=== PATIENT | female | born 1950 | race Caucasian/White ===

== ENCOUNTER 2017-11-12 14:21 | Inpatient (IN) | payer OTHER ==
[~2017-11-12] VITALS: Ht 167.6 cm; Wt 80.5 kg
[~2017-11-12 14:21] MED LIST: ARIPIPRAZOLE5 MG PO; BENADRYL25 MG PO; CARDIZEM120 MG PO; CYMBALTA60 MG PO; DILTIAZEM 24HR120 MG PO; DOK PLUS TABLE1 EACH PO; MUPIROCIN22 GM TP; NUCYNTA ER150 MG PO; OMEPRAZOLE40 M1 PO; OXYCODONE HCL5 MG PO; TYLENOL REGULA325 MG PO; XARELTO10 MG PO
[2017-11-12 15:05] LABS: BASOPHIL (%) 0.2 % (0-1); EOSINOPHIL (%) 0.1 % (0-5); HEMATOCRIT 36.9 % (36.0-46.0); HEMOGLOBIN 12.7 G/DL (11.9-15.5); IMMATURE GRANULOCYTE (%) 0.6 % (0.0-0.7); LYMPHOCYTE (%) 7.1 % (15-42); LYMPHOCYTE COUNT 0.9 K/uL (1.0-2.8); MCH 33.2 PG (29.0-34.0); MCHC 34.4 G/DL (30.0-36.0); MCV 96.3 FL (83-99); MONOCYTE (%) 11.7 % (3-12); MONOCYTE COUNT 1.5 K/uL (0-0.8); NEUTROPHIL (%) 80.3 % (45-76); NEUTROPHIL COUNT 10.1 K/uL (1.8-6.4); PLATELET COUNT 83 K/uL (156-360); RBC DIS.WIDTH-CV 12.5 % (11.8-14.6); RBC DIS.WIDTH-SD 44.2 % (39-53); RED BLOOD COUNT 3.83 M/uL (3.80-5.20); WHITE BLOOD COUNT 12.5 K/uL (4.1-10.2)
[2017-11-12 15:13] LABS: ALBUMIN 3.7 g/dL (3.2-4.8); CHLORIDE 109 mEq/L (99-109); POTASSIUM 3.4 mEq/L (3.7-5.4); SODIUM 142 mEq/L (136-147)
[2017-11-12 15:16] LABS: GLUCOSE 115 mg/dL (70-99); TOTAL PROTEIN 6.3 g/dL (6.4-8.3)
[2017-11-12 15:19] LABS: ALKALINE PHOSPHATASE 66 IU/L (3-129); CREATININE 0.8 mg/dL (0.6-1.3); GFR ESTIMATE (CALCULATED) > 59 mL/min/; SERUM ETHYL ALCOHOL < 10 mg/dL
[2017-11-12 15:20] LABS: UREA NITROGEN (BUN) 15 mg/dL (9-23)
[2017-11-12 15:21] LABS: AST (GOT) 184 IU/L (2-34)
[2017-11-12 15:22] LABS: ALT (GPT) 81 IU/L (3-49)
[2017-11-12 15:25] LABS: TROP-I INTERPRETATION NEGATIVE; TROPONIN-I 0.04 ng/mL (0.0-0.30)
[2017-11-12 15:26] LABS: CREATINE KINASE > 4053 IU/L (1-294)
[2017-11-12 17:26] LABS: APPEARANCE CLEAR ((CLEAR)); BILIRUBIN NEGATIVE; BLOOD SMALL; COLOR AMBER ((YELLOW)); GLUCOSE (STRIP) NEGATIVE; KETONES 5; LEUKOCYTES NEGATIVE; NITRITE NEGATIVE; PROTEIN (STRIP) NEGATIVE
[2017-11-12 17:34] LABS: BACTERIA NONE SEEN /HPF; CALCIUM OXALATE CRYSTALS 2+ /HPF; CELLULAR CASTS 0-5 /LPF; EPITHELIAL CELLS 1+ /HPF; MUCUS 3+ /LPF; RED BLOOD CELLS 0-5 /HPF (0-5); WHITE BLOOD CELLS 0-5 /HPF (0-5)
[2017-11-12 17:36] LABS: AMPHETAMINE NEGATIVE (500 ng/mL); BARBITURATES NEGATIVE (200 ng/mL); BENZODIAZEPINES NEGATIVE (150 ng/mL); BUPRENORPHINE NEGATIVE (10 ng/mL); COCAINE NEGATIVE (150 ng/mL); METHADONE NEGATIVE (200 ng/mL); METHAMPHETAMINE NEGATIVE (500 ng/mL); OPIATES (MORPHINE) NEGATIVE (100 ng/mL); OXYCODONE NEGATIVE (100 ng/mL); PHENCYCLIDINE NEGATIVE (25 ng/mL); PROPOXYPHENE NEGATIVE (300 ng/mL); THC CANNABINOIDS NEGATIVE (50 ng/mL); TRICYCLIC ANTIDEPRESSANTS NEGATIVE (300 ng/mL)
[2017-11-12 17:52] LABS: SPECIFIC GRAVITY 1.074 (1.000-1.030)
[2017-11-12] MEDS ORDERED: LATANOPROST2.5 ML BOTH EYES (18:53)
[2017-11-12] MEDS ORDERED: AMBIEN CR6.25 MG PO (18:54)
[2017-11-12] MEDS ORDERED: WELLBUTRIN XL150 MG PO (18:54)
[2017-11-12] MEDS ORDERED: COMBIGAN O20 DROP/5 BOTH EYES (18:54)
[2017-11-12] MEDS ORDERED: OXYCODONE HCL10 MG PO (18:54)
[2017-11-12 22:00] VITALS: BP 134/62
[2017-11-12 23:42] VITALS: BP 116/56
[2017-11-13 03:49] VITALS: BP 111/53
[2017-11-13 05:29] LABS: HEMATOCRIT 32.3 % (36.0-46.0); MCH 33.5 PG (29.0-34.0); MCHC 34.1 G/DL (30.0-36.0); MCV 98.5 FL (83-99); PLATELET COUNT 81 K/uL (156-360); RBC DIS.WIDTH-CV 12.7 % (11.8-14.6); RBC DIS.WIDTH-SD 46.1 % (39-53); RED BLOOD COUNT 3.28 M/uL (3.80-5.20); WHITE BLOOD COUNT 8.1 K/uL (4.1-10.2)
[2017-11-13 05:55] LABS: CHLORIDE 111 MEQ/L (99-109); CREATININE 0.6 MG/DL (0.6-1.3); GFR ESTIMATE (CALCULATED) > 59 mL/min/; GLUCOSE 95 mg/dL (70-99); POTASSIUM 3.1 MEQ/L (3.7-5.4); SODIUM 144 MEQ/L (136-147); UREA NITROGEN (BUN) 10 mg/dL (9-23)
[2017-11-13 06:09] LABS: CREATINE KINASE 3304 IU/L (1-294)
[2017-11-13 08:17] VITALS: BP 128/73
[2017-11-13 12:05] VITALS: BP 110/58
[2017-11-13] MEDS ORDERED: OXYCODONE HCL10 MG PO (14:57)
[2017-11-13 15:11] VITALS: BP 110/58
== END 2017-11-13 16:29 | disposition home health service (06) | DRG 184 ==
LOC: EME 14:21 → TRA 14:21 → EDOF 19:24 → 3EAST 19:24 → ENRESERV 19:26 → EDOF 19:58 → 3EAST 21:27
PROVIDERS: Emergency Medicine; Surgery
DX: S22.21XA Fracture of manubrium, initial encounter for closed fracture (principal); E87.2 Acidosis; F33.9 Major depressive disorder, recurrent, unspecified; T79.6XXA Traumatic ischemia of muscle, initial encounter; K70.30 Alcoholic cirrhosis of liver without ascites; W18.2XXA Fall in (into) shower or empty bathtub, initial encounter; W10.8XXA Fall (on) (from) other stairs and steps, initial encounter; Y92.031 Bathroom in apartment as the place of occurrence of the external cause; K21.9 Gastro-esophageal reflux disease without esophagitis; F17.210 Nicotine dependence, cigarettes, uncomplicated; F10.21 Alcohol dependence, in remission; G89.29 Other chronic pain; F41.9 Anxiety disorder, unspecified; F19.10 Other psychoactive substance abuse, uncomplicated; Y93.E1 Activity, personal bathing and showering; Z96.651 Presence of right artificial knee joint; Y92.008 Other place in unspecified non-institutional (private) residence as the place of occurrence of the external cause; Y90.0 Blood alcohol level of less than 20 mg/100 ml
CPT/HCPCS: 70450; 71260; 72125; 74177; 80048; 80053; 81003; 82140; 82550; 83605; 83874 90; 84484; 85025; 85027; 93005; 99281; 99285; C1753; G0480; J1170; J2270; J7040; J7120; S0028

== ENCOUNTER 2017-11-16 18:59 | Emergency (ER) | payer OTHER ==
[~2017-11-16] VITALS: Ht 167.6 cm; Wt 86.6 kg
[~2017-11-16 18:59] MED LIST changes: +AMBIEN CR6.25 MG PO; +COMBIGAN O20 DROP/5 BOTH EYES; +LATANOPROST2.5 ML BOTH EYES; +OXYCODONE HCL10 MG PO; +WELLBUTRIN XL150 MG PO
[2017-11-16] MEDS ORDERED: PERCOCET 10/1 TABLET PO (22:40)
[2017-11-16 23:16] VITALS: BP 129/66
== END 2017-11-16 23:36 | disposition home or self-care (01) ==
LOC: EME 18:59
DX: S82.832A Other fracture of upper and lower end of left fibula, initial encounter for closed fracture (principal); S82.55XA Nondisplaced fracture of medial malleolus of left tibia, initial encounter for closed fracture; W18.30XA Fall on same level, unspecified, initial encounter; M79.89 Other specified soft tissue disorders; F32.9 Major depressive disorder, single episode, unspecified; K21.9 Gastro-esophageal reflux disease without esophagitis; F41.9 Anxiety disorder, unspecified; F17.200 Nicotine dependence, unspecified, uncomplicated
CPT/HCPCS: 73610; 93971; 99281; 99284